=== PATIENT | female | born 1995 | race Two or more races ===

== ENCOUNTER 2019-06-08 01:12 | Emergency (ER) | payer SELFPAY ==
[2019-06-08 01:21] VITALS: BP 139/100
[2019-06-08] MEDS ORDERED: IBUPROFEN 600 MG TABLET ONE (01:56)
[2019-06-08] MEDS ORDERED: HYDROmorphone 1 MG/ML, 1ML INJ ONE (01:57)
[2019-06-08] MEDS ORDERED: IBUPROFEN 600 MG TABLET PO ONE (02:00)
[2019-06-08] MEDS ORDERED: HYDROmorphone 1 MG/ML, 1ML INJ IM ONE (02:00)
--- NOTE | 2019-06-08 02:41 | NUR ---
Pt alert and resting on gurney. Pt reports improvment in pain after remedy developer.
--- NOTE | 2019-06-08 03:32 | NUR ---
Pt alert and resting on carlos. Sling applied by orthotic technician.
--- NOTE | 2019-06-08 03:42 | NUR ---
Pt d/c'd to self care. Pt alert, oriented and ambulatory. Pt educated on OTC meds, prescriptions, home care, and follow-up. Pt VU. Pt ambulated out of ER.
== END 2019-06-08 03:44 | disposition home or self-care (01) ==
LOC: ED 03:06
DX: S42.022A Displaced fracture of shaft of left clavicle, initial encounter for closed fracture (principal); S80.01XA Contusion of right knee, initial encounter; S50.312A Abrasion of left elbow, initial encounter; S50.812A Abrasion of left forearm, initial encounter; S60.812A Abrasion of left wrist, initial encounter; S80.212A Abrasion, left knee, initial encounter; V29.49XA Motorcycle driver injured in collision with other motor vehicles in traffic accident, initial encounter; Y93.89 Activity, other specified; Y92.410 Unspecified street and highway as the place of occurrence of the external cause; Y99.8 Other external cause status
CPT/HCPCS: 73030; 73060; 73564; 96372; 99284; J1170